=== PATIENT | female | born 1965 | race Hispanic/Latino ===

== ENCOUNTER 2019-06-13 14:49 | Emergency (ER) | payer OTHER ==
[2019-06-13 16:33] LABS: BASOPHILS % (AUTO) 0.3 % (0.0-5.0); HEMATOCRIT 41.6 % (36-48); LYMPHOCYTES % (AUTO) 28.5 % (21.0-51.0); MEAN CORPUSCULAR HGB CONC 33.1 g/dL (32.0-36.0); MEAN CORPUSCULAR VOLUME 90.6 fL (79-99); MONOCYTES % (AUTO) 7.3 % (3.0-13.0); NEUTROPHILS % (AUTO) 62.9 % (40.0-77.0); PLATELET COUNT (AUTO) 291 K/uL (130-400); RED BLOOD CELL COUNT(AUTO) 4.59 MIL/uL (4.00-5.50); RED CELL DISTRIBUTION WIDTH 12.9 % (11.0-15.5); WHITE BLOOD COUNT (AUTO) 6.7 K/uL (4.8-10.8)
[2019-06-13 16:40] LABS: CARBON DIOXIDE 28 mmol/L (21-32); CHLORIDE 106 mmol/L (101-111); CREATININE 0.9 mg/dL (0.5-1.5); GLOMERULAR FILTR. RATE CALC 69 mL/min (>60); GLUCOSE,RANDOM 98 mg/dL (70-105); POTASSIUM 3.7 mmol/L (3.5-5.1); SODIUM SERUM 141 mmol/L (136-145); UREA NITROGEN, BLOOD 12 mg/dL (7-18)
[2019-06-13 16:41] LABS: INR 0.97 (0.85-1.15); PARTIAL THROMBOPLASTIN TIME 28.1 SEC (26.3-35.5); PROTHROMBIN TIME 10.2 SEC (9.6-11.6)
[2019-06-13 16:44] LABS: ALANINE AMINOTRANSFERASE 28 U/L (12-78); ALBUMIN 3.3 g/dL (3.5-5.0); ASPARTATE AMINOTRANSFERASE 27 U/L (10-37); BILIRUBIN,DIRECT < 0.1 mg/dL (0.0-0.3); BILIRUBIN,TOTAL 0.2 mg/dL (0.2-1.0); CREATINE KINASE, TOTAL 132 U/L (21-232); TOTAL PROTEIN, SERUM 7.1 g/dL (6.0-8.3)
[2019-06-13] MEDS ORDERED: ONDANSETRON HCL 4 MG/2 ML VIAL ONE (17:09)
[2019-06-13] MEDS ORDERED: IBUPROFEN 600 MG TABLET ONE (17:38)
== END 2019-06-13 17:57 | disposition home or self-care (01) ==
LOC: EDH 14:49
DX: F07.81 Postconcussional syndrome (principal); R51 Headache; M54.2 Cervicalgia; R11.0 Nausea; Z98.890 Other specified postprocedural states
CPT/HCPCS: 36415; 70450; 72125; 80048; 80076; 82550; 85025; 85610; 85730; 96374; 99285; J2405

== ENCOUNTER 2020-07-26 10:36 | Emergency (ER) | payer OTHER ==
[2020-07-26 11:30] LABS: BASOPHILS % (AUTO) 0.5 % (0.0-5.0); EOSINOPHILS % (AUTO) 0.9 % (0.0-8.0); HEMATOCRIT 41.1 % (36-48); LYMPHOCYTES % (AUTO) 37.7 % (21.0-51.0); MEAN CORPUSCULAR HEMOGLOBIN 28.9 pg (27.0-33.0); MEAN CORPUSCULAR HGB CONC 32.4 g/dL (32.0-36.0); MEAN CORPUSCULAR VOLUME 89.3 fL (79-99); MONOCYTES % (AUTO) 7.3 % (3.0-13.0); NEUTROPHILS % (AUTO) 53.4 % (40.0-77.0); PLATELET COUNT (AUTO) 323 K/uL (130-400); RED CELL DISTRIBUTION WIDTH 12.3 % (11.0-15.5); WHITE BLOOD COUNT (AUTO) 5.6 K/uL (4.8-10.8)
[2020-07-26 11:36] LABS: APPEARANCE,URINE Clear (CLEAR); BILIRUBIN,URINE Negative (NEGATIVE); COLOR,URINE Yellow (YELLOW); GLUCOSE, URINE (UA) Negative (NEGATIVE); KETONES,URINE Negative (NEGATIVE); LEUKOCYTE ESTERASE ,URINE Negative (NEGATIVE); NITRATE,URINE Negative (NEGATIVE); OCCULT BLOOD,URINE Trace (NEGATIVE); PH,URINE 5.5 (5.0-8.0); PROTEIN,URINE Negative (NEGATIVE); UROBILINOGEN,URINE 0.2 mg/dL (0.2-1.0)
[2020-07-26] MEDS ORDERED: MORPHINE SULFATE 4 MG/1ML SYG ONE (11:37)
[2020-07-26] MEDS ORDERED: ONDANSETRON HCL 4 MG/2 ML VIAL ONE (11:37)
[2020-07-26] MEDS ORDERED: SODIUM CHLORIDE 0.9% 1000ML 1,000 ML IV ONE (11:37)
[2020-07-26 11:47] LABS: BACTERIA,URINE Rare /HPF (None Seen); RBC,URINE 0-1 /HPF (0-1); SQUAMOUS EPITHELIAL CELL,UR Rare /HPF (0-2); WBC,URINE 0-1 /HPF (0-1)
[2020-07-26 11:50] LABS: POTASSIUM 3.7 mmol/L (3.5-5.1)
[2020-07-26 11:55] LABS: BILIRUBIN,TOTAL 0.3 mg/dL (0.2-1.0); TOTAL PROTEIN, SERUM 8.4 g/dL (6.0-8.3)
[2020-07-26] MEDS ORDERED: LORAZEPAM 2 MG/ML 1 ML VIAL ONE (12:23)
== END 2020-07-26 13:58 | disposition home or self-care (01) ==
LOC: EDH 10:36
DX: K57.32 Diverticulitis of large intestine without perforation or abscess without bleeding (principal); R10.32 Left lower quadrant pain; Z90.49 Acquired absence of other specified parts of digestive tract; Z98.890 Other specified postprocedural states
CPT/HCPCS: 36415; 74176; 80053; 81001; 82550; 83690; 84484; 85025; 93005; 96361; 96374; 96375; 99285; J2060; J2270; J2405; J7030

== ENCOUNTER 2022-08-25 18:32 | Emergency (ER) | payer OTHER ==
[~2022-08-25] VITALS: Ht 162.6 cm; Wt 83.9 kg
[2022-08-25] MEDS ORDERED: HYDROCODONE/ACETAMINOPHEN 5/325 MG TAB ONE (18:59)
[2022-08-25] MEDS ORDERED: HYDROCODONE/ACETAMINOPHEN 5/325 MG TAB PO ONE (19:00)
[2022-08-25] MEDS ORDERED: NAPR-1180 PO (19:15)
[2022-08-25 19:20] VITALS: BP 135/63
== END 2022-08-25 19:35 | disposition home or self-care (01) ==
LOC: EDH 18:32
DX: S63.501A Unspecified sprain of right wrist, initial encounter (principal); F32.A Depression, unspecified; E78.00 Pure hypercholesterolemia, unspecified; I10 Essential (primary) hypertension; W19.XXXA Unspecified fall, initial encounter; Y93.89 Activity, other specified; Y92.89 Other specified places as the place of occurrence of the external cause; Y99.8 Other external cause status
CPT/HCPCS: 29125; 73110

== ENCOUNTER → 2023-01-12 | Outpatient (CLI) | payer OTHER ==
[~2023-01-12] MED LIST: AMOX1TAB16 PO; CYCL10TA16 PO; MUPI22OI2 TP; NAPR-1180 PO
== END | disposition home or self-care (01) ==
LOC: RAH 12:57
PROVIDERS: ATTEND Physician Assistant Medical
DX: M48.061 Spinal stenosis, lumbar region without neurogenic claudication (principal); M51.16 Intervertebral disc disorders with radiculopathy, lumbar region
CPT/HCPCS: 72148

== ENCOUNTER 2023-02-28 13:18 | Emergency (ER) | payer OTHER ==
[~2023-02-28] VITALS: Ht 160 cm; Wt 88.5 kg
[2023-02-28 14:01] VITALS: BP 148/104
[2023-02-28] MEDS ORDERED: LIDOCAINE HCL-MPF 2% 5ML VIAL ONE (15:25)
[2023-02-28] MEDS ORDERED: AMOX1TAB16 PO (16:20)
[2023-02-28] MEDS ORDERED: NAPR-1023 PO (16:20)
[2023-02-28] MEDS ORDERED: BACI30OI6 TP (16:20)
== END 2023-02-28 16:32 | disposition home or self-care (01) ==
LOC: EDH 13:18
DX: S61.213A Laceration without foreign body of left middle finger without damage to nail, initial encounter (principal); I10 Essential (primary) hypertension; E78.00 Pure hypercholesterolemia, unspecified; F32.A Depression, unspecified; Z90.89 Acquired absence of other organs; Z90.710 Acquired absence of both cervix and uterus; W27.8XXA Contact with other nonpowered hand tool, initial encounter; Y93.89 Activity, other specified; Y92.89 Other specified places as the place of occurrence of the external cause; Y99.8 Other external cause status
CPT/HCPCS: 64450; 99284; 73140; J3490

== ENCOUNTER → 2023-04-01 | Outpatient (CLI) | payer OTHER ==
[~2023-04-01] MED LIST changes: +BACI30OI6 TP; +NAPR-1023 PO
== END | disposition home or self-care (01) ==
LOC: RAH 10:03
PROVIDERS: ATTEND Physician Assistant Medical
DX: M47.22 Other spondylosis with radiculopathy, cervical region (principal)
CPT/HCPCS: 72141

== ENCOUNTER 2023-10-06 11:09 | Emergency (ER) | payer OTHER ==
[~2023-10-06] VITALS: Ht 160 cm; Wt 90.3 kg
[2023-10-06 11:18] VITALS: BP 160/95; PULSE 89; RESP 18
[2023-10-06 12:52] LABS: BASOPHILS # (AUTO) 0.03 K/uL (0.00-0.20); BASOPHILS % (AUTO) 0.6 % (0.0-5.0); EOSINOPHILS # (AUTO) 0.08 K/uL (0.00-0.70); EOSINOPHILS % (AUTO) 1.6 % (0.0-8.0); HEMATOCRIT 40.2 % (36-48); IMMATURE GRANULOCYTE ABSOLUTE 0.02 K/uL (0-1); LYMPHOCYTES # (AUTO) 2.1 K/uL (1.0-4.8); LYMPHOCYTES % (AUTO) 41.5 % (21.0-51.0); MEAN CORPUSCULAR HEMOGLOBIN 28.7 pg (27.0-33.0); MEAN CORPUSCULAR HGB CONC 32.6 g/dL (32.0-36.0); MEAN CORPUSCULAR VOLUME 88.2 fL (79-99); MONOCYTES # (AUTO) 0.4 K/uL (0.1-1.0); MONOCYTES % (AUTO) 8.1 % (3.0-13.0); NEUTROPHILS # (AUTO) 2.4 K/uL (1.8-7.7); NEUTROPHILS % (AUTO) 47.8 % (40.0-77.0); PLATELET COUNT (AUTO) 277 K/uL (130-400); RED BLOOD CELL COUNT(AUTO) 4.56 MIL/uL (4.00-5.50); RED CELL DISTRIBUTION WIDTH 12.1 % (11.0-15.5); WHITE BLOOD COUNT (AUTO) 5.1 K/uL (4.8-10.8)
[2023-10-06 13:05] LABS: CREATININE 0.8 mg/dL (0.5-1.5); POTASSIUM 4.3 mmol/L (3.5-5.1)
[2023-10-06 13:10] LABS: ALBUMIN 3.4 g/dL (3.5-5.0); BILIRUBIN,TOTAL 0.3 mg/dL (0.2-1.0); TOTAL PROTEIN, SERUM 7.5 g/dL (6.0-8.3)
[2023-10-06] MEDS ORDERED: IBUP-2070 PO (14:17)
[2023-10-06] MEDS ORDERED: METH-662 PO (14:17)
== END 2023-10-06 14:44 | disposition home or self-care (01) ==
LOC: EDH 11:09
DX: M62.830 Muscle spasm of back (principal); M19.90 Unspecified osteoarthritis, unspecified site; E78.00 Pure hypercholesterolemia, unspecified; I10 Essential (primary) hypertension; F32.A Depression, unspecified; Z90.49 Acquired absence of other specified parts of digestive tract
CPT/HCPCS: 36415; 72040; 72070; 80053; 84484; 85025; 93005

== ENCOUNTER 2023-10-15 15:11 | Emergency (ER) | payer OTHER ==
[~2023-10-15] VITALS: Ht 162.6 cm; Wt 90.3 kg
[~2023-10-15 15:11] MED LIST changes: +IBUP-2070 PO; +METH-662 PO
[2023-10-15] MEDS ORDERED: KETOROLAC 30MG VIAL (30MG/ML) IM ONE (16:00)
[2023-10-15 16:19] LABS: BASOPHILS # (AUTO) 0.04 K/uL (0.00-0.20); BASOPHILS % (AUTO) 0.4 % (0.0-5.0); EOSINOPHILS # (AUTO) 0.07 K/uL (0.00-0.70); EOSINOPHILS % (AUTO) 0.7 % (0.0-8.0); IMMATURE GRANULOCYTE ABSOLUTE 0.04 K/uL (0-1); LYMPHOCYTES # (AUTO) 1.6 K/uL (1.0-4.8); LYMPHOCYTES % (AUTO) 16.2 % (21.0-51.0); MEAN CORPUSCULAR HGB CONC 32.6 g/dL (32.0-36.0); MEAN CORPUSCULAR VOLUME 88.8 fL (79-99); MONOCYTES # (AUTO) 0.6 K/uL (0.1-1.0); MONOCYTES % (AUTO) 6.6 % (3.0-13.0); NEUTROPHILS # (AUTO) 7.2 K/uL (1.8-7.7); NEUTROPHILS % (AUTO) 75.7 % (40.0-77.0); PLATELET COUNT (AUTO) 296 K/uL (130-400); RED BLOOD CELL COUNT(AUTO) 4.73 MIL/uL (4.00-5.50); RED CELL DISTRIBUTION WIDTH 11.9 % (11.0-15.5); WHITE BLOOD COUNT (AUTO) 9.6 K/uL (4.8-10.8)
[2023-10-15 16:27] LABS: CREATININE 0.9 mg/dL (0.5-1.5); POTASSIUM 3.9 mmol/L (3.5-5.1)
[2023-10-15] MEDS ORDERED: ACETAMINOPHEN 500 MG TABLET PO ONE (16:30)
[2023-10-15 16:36] LABS: ALBUMIN 3.5 g/dL (3.5-5.0); BILIRUBIN,TOTAL 0.3 mg/dL (0.2-1.0); TOTAL PROTEIN, SERUM 8.5 g/dL (6.0-8.3)
[2023-10-15] MEDS ORDERED: IOHEXOL 350 MG/ML 100ML INFUS..BTL IV ONE (17:50)
[2023-10-15] MEDS ORDERED: ONDA4TAB10 PO (19:20)
[2023-10-15 19:27] VITALS: BP 142/84; PULSE 89; RESP 17; O2SAT 98
[2023-10-15] MEDS ORDERED: FAMOTIDINE 20MG VIAL IV ONE (22:00)
[2023-10-15] MEDS ORDERED: 0.9% NACL 500ML IV.SOLN 500 ML IV SCH (22:00)
[2023-10-15] MEDS ORDERED: KETOROLAC 30MG VIAL (30MG/ML) IVP ONE (22:00)
== END 2023-10-15 23:32 | disposition home or self-care (01) ==
LOC: EDH 15:11
DX: M62.838 Other muscle spasm (principal); M47.812 Spondylosis without myelopathy or radiculopathy, cervical region; I10 Essential (primary) hypertension; E78.00 Pure hypercholesterolemia, unspecified; F32.A Depression, unspecified; Z90.49 Acquired absence of other specified parts of digestive tract; Z79.899 Other long term (current) drug therapy; Z98.890 Other specified postprocedural states; Z90.710 Acquired absence of both cervix and uterus
CPT/HCPCS: 99285; 96374; 71270; 71045; 96375; 82550; 84484; 80053; 85025; 85378; 85651; 86140; 36415; 93005; J3490; J1885; Q9967

== ENCOUNTER 2024-03-04 00:18 | Emergency (ER) | payer OTHER ==
[~2024-03-04] VITALS: Ht 160 cm; Wt 87.5 kg
[~2024-03-04 00:18] MED LIST changes: +ONDA4TAB10 PO
[2024-03-04 01:27] LABS: BASOPHILS # (AUTO) 0.05 K/uL (0.00-0.20); BASOPHILS % (AUTO) 0.4 % (0.0-5.0); EOSINOPHILS # (AUTO) 0.07 K/uL (0.00-0.70); EOSINOPHILS % (AUTO) 0.6 % (0.0-8.0); HEMATOCRIT 43.5 % (36-48); IMMATURE GRANULOCYTE ABSOLUTE 0.04 K/uL (0-1); LYMPHOCYTES # (AUTO) 2.3 K/uL (1.0-4.8); MEAN CORPUSCULAR HEMOGLOBIN 29.5 pg (27.0-33.0); MEAN CORPUSCULAR HGB CONC 33.3 g/dL (32.0-36.0); MEAN CORPUSCULAR VOLUME 88.4 fL (79-99); MONOCYTES # (AUTO) 0.6 K/uL (0.1-1.0); MONOCYTES % (AUTO) 4.9 % (3.0-13.0); NEUTROPHILS # (AUTO) 8.3 K/uL (1.8-7.7); NEUTROPHILS % (AUTO) 73.7 % (40.0-77.0); PLATELET COUNT (AUTO) 348 K/uL (130-400); RED BLOOD CELL COUNT(AUTO) 4.92 MIL/uL (4.00-5.50); RED CELL DISTRIBUTION WIDTH 12.7 % (11.0-15.5); WHITE BLOOD COUNT (AUTO) 11.3 K/uL (4.8-10.8)
[2024-03-04 01:40] LABS: CREATININE 0.9 mg/dL (0.5-1.0); POTASSIUM 4.2 mmol/L (3.5-5.1)
[2024-03-04 01:44] LABS: BILIRUBIN,TOTAL 0.2 mg/dL (0.2-1.0); TOTAL PROTEIN, SERUM 8.6 g/dL (6.0-8.3)
[2024-03-04] MEDS: METOCLOPRAMIDE 10 MG/2 ML VIAL IVP ONE (01:45)
[2024-03-04] MEDS: CYCLOBENZAPRINE HCL 10 MG TABLET PO ONE (01:45)
[2024-03-04] MEDS: DiphenhydrAMINE HCL 50 MG/ML VIAL IV PRN (01:45)
[2024-03-04] MEDS: KETOROLAC 30MG VIAL (30MG/ML) IVP ONE (01:45)
[2024-03-04 02:54] VITALS: BP 143/83; PULSE 79; RESP 17; O2SAT 96
[2024-03-04] MEDS ORDERED: IBUP-1493 PO (02:54)
[2024-03-04] MEDS ORDERED: CYCL-309 PO (02:54)
[2024-03-04] MEDS ORDERED: GABA300C PO (02:54)
== END 2024-03-04 03:05 | disposition home or self-care (01) ==
LOC: EDH 00:18
DX: R07.89 Other chest pain (principal); R51.9 Headache, unspecified; M54.2 Cervicalgia; Z79.899 Other long term (current) drug therapy; Z90.49 Acquired absence of other specified parts of digestive tract; Z90.710 Acquired absence of both cervix and uterus; Z98.890 Other specified postprocedural states
CPT/HCPCS: 99285; 96374; 70450; 96375; 83735; 80053; 85025; 36415; J1200; J1885; J2765

== ENCOUNTER 2024-07-07 11:43 | Emergency (ER) | payer OTHER ==
[~2024-07-07] VITALS: Ht 160 cm; Wt 86.2 kg
[~2024-07-07 11:43] MED LIST changes: -AMOX1TAB16 PO; -BACI30OI6 TP; +CYCL-309 PO; -CYCL10TA16 PO; +GABA300C PO; +IBUP-1493 PO; -IBUP-2070 PO; -MUPI22OI2 TP; -NAPR-1023 PO; -NAPR-1180 PO; -ONDA4TAB10 PO
[2024-07-07 12:14] LABS: BASOPHILS # (AUTO) 0.03 K/uL (0.00-0.20); BASOPHILS % (AUTO) 0.3 % (0.0-5.0); EOSINOPHILS # (AUTO) 0.03 K/uL (0.00-0.70); EOSINOPHILS % (AUTO) 0.3 % (0.0-8.0); IMMATURE GRANULOCYTE ABSOLUTE 0.04 K/uL (0-1); LYMPHOCYTES # (AUTO) 2.2 K/uL (1.0-4.8); LYMPHOCYTES % (AUTO) 20.9 % (21.0-51.0); MEAN CORPUSCULAR HEMOGLOBIN 28.4 pg (27.0-33.0); MEAN CORPUSCULAR HGB CONC 32.2 g/dL (32.0-36.0); MEAN CORPUSCULAR VOLUME 88.3 fL (79-99); MONOCYTES # (AUTO) 0.6 K/uL (0.1-1.0); NEUTROPHILS # (AUTO) 7.6 K/uL (1.8-7.7); NEUTROPHILS % (AUTO) 72.1 % (40.0-77.0); PLATELET COUNT (AUTO) 313 K/uL (130-400); RED BLOOD CELL COUNT(AUTO) 5.21 MIL/uL (4.00-5.50); RED CELL DISTRIBUTION WIDTH 12.2 % (11.0-15.5); WHITE BLOOD COUNT (AUTO) 10.5 K/uL (4.8-10.8)
[2024-07-07 12:22] LABS: POTASSIUM 4.5 mmol/L (3.5-5.1)
[2024-07-07 12:26] LABS: ALBUMIN 3.6 g/dL (3.5-5.0); BILIRUBIN,TOTAL 0.5 mg/dL (0.2-1.0); TOTAL PROTEIN, SERUM 8.1 g/dL (6.0-8.3)
[2024-07-07 14:41] LABS: APPEARANCE,URINE CLEAR (CLEAR); BILIRUBIN,URINE NEGATIVE (NEGATIVE); COLOR,URINE LIGHT-YELLOW (YELLOW); GLUCOSE, URINE (UA) NEGATIVE (NEGATIVE); KETONES,URINE NEGATIVE (NEGATIVE); LEUKOCYTE ESTERASE ,URINE NEGATIVE Leu/uL (NEGATIVE); NITRATE,URINE NEGATIVE (NEGATIVE); OCCULT BLOOD,URINE SMALL (NEGATIVE); PH,URINE 5.5 (5.0-8.0); PROTEIN,URINE NEGATIVE (NEGATIVE); UROBILINOGEN,URINE 0.2 mg/dL (0.2-1.0)
[2024-07-07] MEDS: ZOSYN 3.375GM +NS 50ML IVPB ONE (14:41)
[2024-07-07] MEDS: KETOROLAC 30MG VIAL (30MG/ML) IVP ONE (14:41)
[2024-07-07] MEDS: 0.9%NACL 1000ML 1,000 ML IV ONE (14:41)
[2024-07-07 14:42] LABS: ADD UA MICROSCOPIC YES
[2024-07-07 14:49] LABS: MUCUS,URINE RARE LPF (None Seen); RBC,URINE 0-1 /HPF (0-1); WBC,URINE 0-1 /HPF (0-1)
[2024-07-07] MEDS ORDERED: AMOX1TAB16 PO (15:50)
[2024-07-07] MEDS ORDERED: ACET-2079 PO (15:50)
[2024-07-07] MEDS: ONDANSETRON 4MG INJ IVP ONE (15:55)
[2024-07-07] MEDS: MORPHINE 2 MG SYG IVP ONE (15:56)
[2024-07-07 16:03] VITALS: BP 136/80; PULSE 80; RESP 17; O2SAT 98
== END 2024-07-07 16:15 | disposition home or self-care (01) ==
LOC: EDH 11:43
DX: K57.32 Diverticulitis of large intestine without perforation or abscess without bleeding (principal); E78.00 Pure hypercholesterolemia, unspecified; I10 Essential (primary) hypertension; Z79.899 Other long term (current) drug therapy; Z90.710 Acquired absence of both cervix and uterus; Z90.49 Acquired absence of other specified parts of digestive tract; Z98.890 Other specified postprocedural states; Z90.5 Acquired absence of kidney
CPT/HCPCS: 99285; 74176; 96365; 96375; 80053; 83690; 85025; 81001; 36415; J2270; J7030; J2405; J1885; J2543

== ENCOUNTER 2025-01-14 05:54 | Day surgery (SDC) | payer OTHER ==
[2025-01-14] VITALS (11 sets, daily range): BP systolic 110–140; BP diastolic 60–86; PULSE 66–81; RESP 15–16; TEMP 97–97.4
[~2025-01-14] VITALS: Ht 160 cm; Wt 88.5 kg
[~2025-01-14 05:54] MED LIST changes: -CYCL-309 PO; -GABA300C PO; +HYDR-4060 PO; -IBUP-1493 PO; -METH-662 PO; +METO-408 PO; +ROSU5TAB51 PO
[2025-01-14] MEDS: 0.9%NACL 1000ML 1,000 ML IV ONE (07:12)
[2025-01-14] MEDS ORDERED: proPOFol 10 MG/ML 20ML VIAL IV ONE (07:46)
[2025-01-14] MEDS ORDERED: LIDOCAINE HCL 1% 20 ML VIAL ONE (07:47)
== END 2025-01-14 09:08 | disposition home or self-care (01) ==
LOC: DAH 05:54
PROVIDERS: ATTEND Surgery
DX: K57.30 Diverticulosis of large intestine without perforation or abscess without bleeding (principal); K59.09 Other constipation; K76.0 Fatty (change of) liver, not elsewhere classified; E78.00 Pure hypercholesterolemia, unspecified; F41.9 Anxiety disorder, unspecified; E66.09 Other obesity due to excess calories; M19.90 Unspecified osteoarthritis, unspecified site; Z68.35 Body mass index [BMI] 35.0-35.9, adult; Z79.899 Other long term (current) drug therapy; Z98.0 Intestinal bypass and anastomosis status
CPT/HCPCS: 45378; J7030 ×2; J2704; A4620; A4215 ×2; A4223; A4222; A4221; A4663; A4606; J3490

== ENCOUNTER → 2025-06-11 | Outpatient (CLI) | payer OTHER ==
[2025-06-11 14:47] LABS: CREATININE 0.8 mg/dL (0.5-1.0); GLOMERULAR FILTR. RATE CALC 84.0 mL/min (>90); UREA NITROGEN, BLOOD 13.0 mg/dL (7-18)
== END | disposition home or self-care (01) ==
LOC: LAB 13:33
PROVIDERS: ATTEND Surgery
DX: R10.9 Unspecified abdominal pain (principal)
CPT/HCPCS: 36415; 82565; 84520

== ENCOUNTER → 2025-06-17 | Outpatient (CLI) | payer OTHER ==
[~2025-06-17] MED LIST changes: +GADOTERATE MEGLUMINE 10 MMOL/20 ML VIAL IV ONE
--- NOTE | 2025-06-18 21:02 | HMCIMG ---
EXAM: MR Abdomen with and without Intravenous Contrast. CLINICAL HISTORY: Patient presents with unspecified abdominal pain. TECHNIQUE: Multisequence, multiplanar magnetic resonance images of the abdomen with and without intravenous contrast. CONTRAST: IV COMPARISON: 07/07/2024. FINDINGS: LOWER THORAX: No pleural effusion. LIVER: Mild hepatomegaly: the right hepatic lobe measures up to 20.4 cm in craniocaudal dimension. Findings consistent with hepatic steatosis. GALLBLADDER AND BILE DUCTS: No gallstone. No biliary ductal dilatation. PANCREAS: Unremarkable. No ductal dilation. SPLEEN: Unremarkable. ADRENALS: Unremarkable. KIDNEYS: Right kidney appears normal in morphology without hydronephrosis or mass. 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 STOMACH AND BOWEL: Limited evaluation reveals no acute abnormality. LYMPH NODES: No lymphadenopathy. VASCULATURE: No abdominal aortic aneurysm. IMPRESSION: Mild hepatomegaly with diffuse steatosis. Left nephrectomy status. No acute intra-abdominal abnormality. /[place]
--- NOTE | 2025-06-18 21:04 | HMCIMG ---
EXAM: MR Pelvis with and without Intravenous Contrast. CLINICAL HISTORY: Patient presents with unspecified abdominal pain. TECHNIQUE: Multisequence, multiplanar magnetic resonance images of the pelvis with and without intravenous contrast. CONTRAST: IV COMPARISON: 07/07/2024. FINDINGS: BOWEL: Circumferential mural thickening of the superior rectum, likely secondary to under distention. Uncomplicated colonic diverticula. BLADDER: Unremarkable. No stone. REPRODUCTIVE: Uterus and ovaries are not visualized, presumed surgically absent. LYMPH NODES: A 0.8 x 1.0 cm perirectal lymph node. No other lymphadenopathy. BONES: No acute fracture or aggressive appearing osseous lesion. IMPRESSION: Circumferential mural thickening of the superior rectum, likely related to under distention; however, colonoscopy correlation advised to rule out any neoplastic etiology. Uncomplicated colonic diverticula. Perirectal lymph node measuring 0.8 x 1.0 cm. Small fat-containing umbilical hernia. Post-hysterectomy status. /[place]
== END | disposition home or self-care (01) ==
LOC: RAH 13:43
PROVIDERS: ATTEND Surgery
DX: K76.0 Fatty (change of) liver, not elsewhere classified (principal); K42.9 Umbilical hernia without obstruction or gangrene; K57.30 Diverticulosis of large intestine without perforation or abscess without bleeding; K62.89 Other specified diseases of anus and rectum; R16.0 Hepatomegaly, not elsewhere classified; R10.9 Unspecified abdominal pain; Z90.5 Acquired absence of kidney; Z90.710 Acquired absence of both cervix and uterus
CPT/HCPCS: 74183; 72197; A9575